=== PATIENT | female | born 1995 | race Caucasian/White ===

== ENCOUNTER 2017-12-12 11:11 | Day surgery (SDC) | payer OTHER ==
[2017-12-12] MEDS ORDERED: LACTATED RINGER'S 1,000 ML IV* (11:30)
[2017-12-12] MEDS ORDERED: LIDOCAINE 1% (MDV) 10 ML INJ ×2 (13:12)
[2017-12-12] MEDS ORDERED: GELATIN 12MM X 7 MM SPONGE (13:52)
[2017-12-12] MEDS ORDERED: FENTAnyl 50 MCG/ML VIAL (14:42)
[2017-12-12] MEDS ORDERED: DIPHENHYDRAMINE 50 MG INJ (14:43)
== END 2017-12-12 16:04 | disposition home or self-care (01) ==
LOC: SDS 11:11
DX: R80.9 Proteinuria, unspecified (principal); Z53.9 Procedure and treatment not carried out, unspecified reason
CPT/HCPCS: 74150